=== PATIENT | male | born 1965 | race Two or more races ===

== ENCOUNTER 2025-06-27 12:18 | Inpatient (IN) | payer OTHER ==
[~2025-06-27] VITALS: Ht 193 cm; Wt 54.4 kg
[~2025-06-27 12:18] MED LIST: GLUCOTROL10 MG; LANTUS100 U/ML SQ; MEFOXIN IV; METFORMIN HCL500 MG; ULTRACET PO
[2025-06-27 12:30] VITALS: BP 90/60; O2SAT 100
[2025-06-27] MEDS ORDERED: INSULIN REGULAR, HUMAN 1,000 UNIT/10 ML UNITS IV ONE (12:45)
[2025-06-27] MEDS ORDERED: VANCOMYCIN HCL 1,000 MG VIAL IV ONE (12:45)
[2025-06-27] MEDS ORDERED: 0.9 % SODIUM CHLORIDE 1,000 ML IV SCH (12:45)
[2025-06-27] MEDS ORDERED: FAMOtidine 10 MG/ML (4ML VIAL) IV PUSH ONE (12:45)
[2025-06-27] MEDS ORDERED: ONDANSETRON HCL 4 MG in 0.9 % SODIUM CHLORIDE 50 ML IV ONE (12:45)
[2025-06-27] MEDS ORDERED: CEFTRIAXONE SODIUM 2,000 MG in 0.9 % SODIUM CHLORIDE 100 ML IV ONE (12:45)
[2025-06-27] MEDS ORDERED: 0.9 % SODIUM CHLORIDE 1,000 ML IV ONE ×2 (12:45)
[2025-06-27] MEDS ORDERED: SODIUM BICARBONATE 1 MEQ/ML DISP.SYRIN 50ML IV ONE ×4 (12:51→16:00)
[2025-06-27] MEDS ORDERED: PROPOFOL 10,000 MCG/ML VIAL ONE (12:54)
[2025-06-27 13:00] VITALS: BP 90/60; O2SAT 100
--- NOTE | 2025-06-27 13:32 | NUR ---
SE RECIBE PTE ALERTA Y DESORIENTADO X3 EN COMPANIA DE KEVIN SOBRINA QUIEN REFIERE PRESENTA AZUCAR EN NOE ELEVADA Y DEBILIDAD. SE OBSERVA CON RESPIRACIONES ABDOMINALES, SE MARICARMEN S/V, SE PRESENTA A Y SE UBICA EN ICU 2. SE CANALIZA PTE X3, VEOPUNCIONES PATENTES MIRZA DE EDE[place] Y ERITEMA EN H/L. SE MARICARMEN MUESTRAS DE LAB JACINDA ORDEN MEDICA Y BAJO MEDIDAS ASEPTICAS. SE CONECTA A MONITOR CARDAICO Y OXIMETRIA DE PULSO CONTINUA. SE COLOCA C/N @4 LT/MIN.
[2025-06-27] MEDS ORDERED: LORazepam 2 MG/ML VIAL IV STA (13:45)
[2025-06-27 13:48] LABS: ERYTHROCYTE SEDIMENTATION RATE 39 mm/hr (0-20)
[2025-06-27 13:49] LABS: BASO % 0.4 % (0.1-1.2); EOS # 0.00 (0.04-0.54); EOS % 0.0 % (0.7-7.0); LYMPH # 0.64 (1.18-3.74); LYMPH % 3.9 % (19.3-53.1); MEAN PLATELET VOLUME 12.90 fl (9.4-12.4); MONO # 1.60 (0.24-0.82); MONO % 9.9 % (4.7-12.5); NEUT # 13.72 (1.56-6.13); NEUT % 84.7 % (34.0-71.1); RED CELL DISTRIBUTION WIDTH 13.4 % (11.6-14.4)
[2025-06-27 14:00] LABS: COVID-19 AG NEGATIVE (NEGATIVE)
[2025-06-27 14:04] LABS: INR 1.04
[2025-06-27 14:21] LABS: URINE APPEARANCE Clear; URINE BILIRRUBIN Negative (NEGATIVE); URINE BLOOD Moderate; URINE COLOR Yellow; URINE LEUKOCYTE Negative; URINE NITRATE Negative; URINE UROBILINOGEN 0.2 E.U./dl
[2025-06-27 14:23] LABS: ALT/SGPT 22 U/L (12-78); AST/SGOT 16 U/L (15-37); BILIRUBIN TOTAL 0.55 mg/dL (0.3-1.2); BUN CREA RATIO 19 (7.0-25.0); CREATININE SERUM 2.39 mg/dL (0.70-1.30); GFR 27.79; GLOBULINA 4.3 G/DL (2.4-3.5)
[2025-06-27 14:25] LABS: URINE BACTERIA 27.5 uL (0.0-1933); URINE CAST 2.78 uL (0.0-1.40); URINE EPITHELIAL CELLS 5.3 uL (0.0-38.8); URINE RBC 14.9 uL (0.0-20.8); URINE WBC 4.4 uL (0.0-23.2)
[2025-06-27 14:35] LABS: URINE GLUCOSE >=1000 MG/DL (NEGATIVE); URINE KETONE 80 (NEGATIVE); URINE PROTEIN 100 (NEGATIVE)
[2025-06-27 14:47] LABS: OSMOLALITY SERUM 318 MOSM/KG (275-295)
[2025-06-27 14:48] LABS: GLUCOSE FASTING 782 mg/dL (65-100)
[2025-06-27] MEDS ORDERED: INSULIN REGULAR, HUMAN 100 UNITS in 0.9 % SODIUM CHLORIDE 100 ML IV SCH (15:00)
[2025-06-27] MEDS ORDERED: VANCOMYCIN HCL 1,000 MG VIAL ONE (15:09)
[2025-06-27] MEDS ORDERED: CEFTRIAXONE SODIUM 2,000 MG VIAL ONE (15:35)
[2025-06-27] MEDS ORDERED: SODIUM BICARBONATE 100 MEQ in SODIUM CHLORIDE 0.45 % 1,000 ML IV SCH (16:00)
[2025-06-27] MEDS ORDERED: ACETAMINOPHEN 650 MG SUPP.RECT RECTAL PRN (17:00)
[2025-06-27] MEDS ORDERED: ONDANSETRON HCL 4 MG in 0.9 % SODIUM CHLORIDE 50 ML IV PRN (17:00)
[2025-06-27] MEDS ORDERED: PROPOFOL 100 ML IV SCH (17:30)
[2025-06-27] MEDS ORDERED: MIDAZOLAM HCL 50 MG in 0.9 % SODIUM CHLORIDE 50 ML IV SCH (17:30)
[2025-06-27] MEDS ORDERED: ONDANSETRON HCL 2 MG/ML VIAL ONE (17:50)
[2025-06-27] MEDS ORDERED: FAMOTIDINE/PF 20 MG/2 ML VIAL ONE (17:50)
[2025-06-27 21:00] VITALS: BP 135/94; O2SAT 100
[2025-06-27] MEDS ORDERED: MEROPENEM 500 MG/VIAL VIAL IV SCH (21:00)
[2025-06-27] MEDS ORDERED: SODIUM CL 0.9% 100 ML IV.SOLN IV ONE (21:04)
[2025-06-27 21:35] LABS: BUN CREA RATIO 26.0 (7.0-25.0); CREATININE SERUM 1.76 mg/dL (0.70-1.30); GFR 39.56
[2025-06-27 21:36] LABS: COCAINE NEGATIVE (NEGATIVE); METHADONE NEGATIVE (NEGATIVE); OPIATES NEGATIVE (NEGATIVE); THC ( Cannabinoids) NEGATIVE (NEGATIVE)
[2025-06-27 21:49] LABS: OSMOLALITY SERUM 325.0 MOSM/KG (275-295)
[2025-06-27 21:50] LABS: GLUCOSE FASTING 517.0 mg/dL (65-100)
[2025-06-27 23:45] VITALS: BP 132/88; O2SAT 100
[2025-06-28] VITALS (14 sets, daily range): BP systolic 96–144; BP diastolic 68–96; O2SAT 100
[2025-06-28] MEDS ORDERED: CHLORHEXIDINE GLUCONATE 15ML BRUSH KIT MM SCH (01:00)
[2025-06-28] MEDS ORDERED: DEXTROSE 5 % IN WATER 500 ML IV SCH (04:30)
[2025-06-28 08:57] LABS: ALT/SGPT 16.0 U/L (12-78); AST/SGOT 24.0 U/L (15-37); BILIRUBIN TOTAL 0.36 mg/dL (0.3-1.2); BUN CREA RATIO 30.0 (7.0-25.0); CREATININE SERUM 1.44 mg/dL (0.70-1.30); GFR 49.87; GLOBULINA 3.0 G/DL (2.4-3.5); GLUCOSE FASTING 104.0 mg/dL (65-100)
[2025-06-28] MEDS ORDERED: PANTOPRAZOLE SODIUM 40 MG/VIAL VIAL IV SCH (09:00)
[2025-06-28] MEDS ORDERED: POLYVINYL ALCOHOL 15 ML DROPS OP SCH (09:00)
[2025-06-28] MEDS ORDERED: LINEZOLID IN DEXTROSE 5% 300 ML IV SCH (09:00)
[2025-06-28 09:08] LABS: OSMOLALITY SERUM 309.0 MOSM/KG (275-295); TSH 5.24 uIU/mL (0.358-3.74)
[2025-06-28] MEDS ORDERED: SODIUM CHLORIDE 0.45 % 1,000 ML IV SCH (11:30)
[2025-06-28] MEDS ORDERED: POTASSIUM CHLORIDE 20MEQ/100ML H2O PB IV NR (12:00)
[2025-06-28] MEDS ORDERED: INSULIN LISPRO 1,000 UNIT/10 ML UNITS SUBCUTANEO PRN (12:15)
[2025-06-28] MEDS ORDERED: DEXTROSE 50 % IN WATER 0.5 G/ML DISP.SYRIN IV PRN (12:15)
[2025-06-29] VITALS (8 sets, daily range): BP systolic 99–151; BP diastolic 73–93; O2SAT 100
[2025-06-29] MEDS ORDERED: DEXTROSE 5 % IN WATER 1,000 ML IV SCH (04:30)
[2025-06-29 06:39] LABS: URINE APPEARANCE Cloudy; URINE BILIRRUBIN Negative (NEGATIVE); URINE BLOOD Moderate; URINE COLOR Yellow; URINE KETONE 15 (NEGATIVE); URINE LEUKOCYTE Negative; URINE NITRATE Negative; URINE PROTEIN Trace (NEGATIVE); URINE UROBILINOGEN 0.2 E.U./dl
[2025-06-29 06:43] LABS: URINE BACTERIA 59.9 uL (0.0-1933); URINE EPITHELIAL CELLS 9.6 uL (0.0-38.8); URINE RBC 188.8 uL (0.0-20.8); URINE WBC 6.4 uL (0.0-23.2)
[2025-06-29] MEDS ORDERED: INSULIN NPH HUMAN ISOPHANE 1,000 UNITS/10 ML UNITS SUBCUTANEO STA (06:57)
[2025-06-29 07:00] LABS: BASO % 0.2 % (0.1-1.2); EOS # 0.02 (0.04-0.54); EOS % 0.2 % (0.7-7.0); LYMPH # 0.49 (1.18-3.74); LYMPH % 5.9 % (19.3-53.1); MEAN PLATELET VOLUME 12.40 fl (9.4-12.4); MONO # 0.60 (0.24-0.82); MONO % 7.2 % (4.7-12.5); NEUT # 7.10 (1.56-6.13); NEUT % 85.8 % (34.0-71.1); RED CELL DISTRIBUTION WIDTH 12.3 % (11.6-14.4)
[2025-06-29 07:27] LABS: URINE CAST 0.00 uL (0.0-1.40); URINE GLUCOSE >=1000 MG/DL (NEGATIVE)
[2025-06-29 07:29] LABS: URINE CRYSTALS MODERATE /HPF
[2025-06-29 07:43] LABS: ALT/SGPT 18.0 U/L (12-78); AST/SGOT 29.0 U/L (15-37); BILIRUBIN TOTAL 0.37 mg/dL (0.3-1.2); BUN CREA RATIO 22.0 (7.0-25.0); CREATININE SERUM 1.22 mg/dL (0.70-1.30); GFR 60.39; GLOBULINA 3.0 G/DL (2.4-3.5); LDH 214.0 U/L (87-241)
[2025-06-29 07:45] LABS: GLUCOSE FASTING 318.0 mg/dL (65-100); OSMOLALITY SERUM 302.0 MOSM/KG (275-295)
[2025-06-29] MEDS ORDERED: CHLORHEXIDINE GLUCONATE 120 ML BOTTLE TOP ONE (10:52)
[2025-06-29] MEDS ORDERED: POTASSIUM CHLORIDE IN WATER 100 ML IV NR (11:00)
[2025-06-29] MEDS ORDERED: INSULIN NPH HUMAN ISOPHANE 1,000 UNITS/10 ML UNITS SUBCUTANEO SCH (13:00)
[2025-06-29] MEDS ORDERED: SODIUM CHLORIDE 0.45 % 1,000 ML IV SCH (13:45)
[2025-06-29] MEDS ORDERED: POTASSIUM CHLORIDE IN WATER 40 MEQ/100 ML PIGGYBAG IV ONE (16:30)
[2025-06-30] VITALS (9 sets, daily range): BP systolic 101–161; BP diastolic 65–98; O2SAT 99–100
[2025-06-30] MEDS ORDERED: METHYLPREDNISOLONE SOD SUCC 40 MG VIAL IV STA (09:44)
[2025-06-30] MEDS ORDERED: ALBUTEROL SULFATE 3 ML/2.5 MG AMPUL.NEB IH NR (11:00)
[2025-06-30] MEDS ORDERED: RACEPINEPHRINE HCL 0.5 ML AMPUL IH NR (11:00)
[2025-06-30 14:14] LABS: BASO % 0.3 % (0.1-1.2); EOS # 0.00 (0.04-0.54); EOS % 0.0 % (0.7-7.0); LYMPH # 0.99 (1.18-3.74); LYMPH % 6.6 % (19.3-53.1); MEAN PLATELET VOLUME 11.80 fl (9.4-12.4); MONO # 0.82 (0.24-0.82); MONO % 5.4 % (4.7-12.5); NEUT # 13.13 (1.56-6.13); NEUT % 86.9 % (34.0-71.1); RED CELL DISTRIBUTION WIDTH 13.2 % (11.6-14.4)
[2025-06-30 14:52] LABS: BAND MAN 22.0 %; LYMPHOCYTE MAN 9.0 %; MONOCYTE MAN 4.0 %; NEUTROPHILS MAN 63.0 %
[2025-06-30 15:04] LABS: ALT/SGPT 18.0 U/L (12-78); AST/SGOT 31.0 U/L (15-37); BILIRUBIN TOTAL 0.59 mg/dL (0.3-1.2); BUN CREA RATIO 26.0 (7.0-25.0); CREATININE SERUM 0.7 mg/dL (0.70-1.30); GFR 114.65; GLOBULINA 3.0 G/DL (2.4-3.5); GLUCOSE FASTING 255.0 mg/dL (65-100); OSMOLALITY SERUM 301.0 MOSM/KG (275-295)
[2025-06-30] MEDS ORDERED: POTASSIUM CHLORIDE IN WATER 100 ML IV ONE (20:30)
[2025-06-30] MEDS ORDERED: ENALAPRILAT DIHYDRATE 1.25 MG/ML VIAL IV ONE (21:47)
[2025-06-30] MEDS ORDERED: ENALAPRILAT DIHYDRATE 1.25 MG/ML VIAL IV PRN (22:15)
[2025-07-01 04:00] VITALS: BP 137/87; O2SAT 100
[2025-07-01 07:01] VITALS: BP 118/83; O2SAT 100
[2025-07-01 11:56] VITALS: BP 136/84; O2SAT 100
[2025-07-01] MEDS ORDERED: MEROPENEM 500 MG/VIAL VIAL IV SCH (12:00)
[2025-07-01 15:35] VITALS: BP 128/83; O2SAT 100
[2025-07-01 20:00] VITALS: BP 139/83; O2SAT 100
[2025-07-01] MEDS ORDERED: INSULIN NPH HUMAN ISOPHANE 1,000 UNITS/10 ML UNITS SUBCUTANEO STA (21:08)
[2025-07-01] MEDS ORDERED: INSULIN REGULAR, HUMAN 1,000 UNIT/10 ML UNITS IV STA (21:09)
[2025-07-01 23:23] VITALS: BP 130/79; O2SAT 100
[2025-07-02 04:02] VITALS: BP 109/57; O2SAT 98
[2025-07-02 07:01] VITALS: BP 148/91; O2SAT 100
[2025-07-02] MEDS ORDERED: INSULIN LISPRO 1,000 UNIT/10 ML UNITS SUBCUTANEO SCH ×2 (08:00)
[2025-07-02] MEDS ORDERED: INSULIN NPH HUMAN ISOPHANE 1,000 UNITS/10 ML UNITS SUBCUTANEO SCH ×2 (09:00)
[2025-07-02 12:09] VITALS: BP 154/103; O2SAT 100
[2025-07-02 15:46] VITALS: BP 119/70; O2SAT 100
[2025-07-02] MEDS ORDERED: LACTOBACILLUS ACIDOPHILUS 1 CAP CAP PO SCH (17:00)
[2025-07-03 01:51] VITALS: BP 142/90; O2SAT 98
[2025-07-03 06:32] LABS: BASO % 0.7 % (0.1-1.2); EOS # 0.09 (0.04-0.54); EOS % 1.6 % (0.7-7.0); LYMPH # 0.98 (1.18-3.74); LYMPH % 17.2 % (19.3-53.1); MEAN PLATELET VOLUME 11.20 fl (9.4-12.4); MONO # 0.90 (0.24-0.82); NEUT # 3.63 (1.56-6.13); NEUT % 63.6 % (34.0-71.1); RED CELL DISTRIBUTION WIDTH 12.9 % (11.6-14.4)
[2025-07-03 06:59] LABS: MONO % 15.8 % (4.7-12.5)
[2025-07-03 07:01] LABS: ALT/SGPT 23.0 U/L (12-78); AST/SGOT 28.0 U/L (15-37); BILIRUBIN TOTAL 0.51 mg/dL (0.3-1.2); BUN CREA RATIO 36.0 (7.0-25.0); CREATININE SERUM 0.53 mg/dL (0.70-1.30); GFR 158.05; GLOBULINA 3.0 G/DL (2.4-3.5); OSMOLALITY SERUM 293.0 MOSM/KG (275-295)
[2025-07-03 07:04] LABS: GLUCOSE FASTING 274.0 mg/dL (65-100)
[2025-07-03 09:28] VITALS: BP 125/76; O2SAT 99
[2025-07-03] MEDS ORDERED: LINEZOLID IN DEXTROSE 5% 300 ML IV NR (10:00)
[2025-07-03] MEDS ORDERED: MUPIROCIN 22 GM OINT..GM TUBE NASAL SCH (17:00)
[2025-07-03 17:56] VITALS: BP 137/84
[2025-07-03] MEDS ORDERED: LINEZOLID IN DEXTROSE 5% 300 ML IV SCH (21:00)
[2025-07-04 03:27] VITALS: BP 143/83; O2SAT 98
[2025-07-04 08:39] VITALS: BP 126/72; O2SAT 98
[2025-07-04] MEDS ORDERED: CHLORHEXIDINE GLUCONATE 120 ML BOTTLE TOP SCH (09:00)
[2025-07-04] MEDS ORDERED: INSULIN LISPRO 1,000 UNIT/10 ML UNITS SUBCUTANEO SCH (12:00)
[2025-07-04 12:01] LABS: ALT/SGPT 30.0 U/L (12-78); AST/SGOT 45.0 U/L (15-37); BILIRUBIN TOTAL 0.4 mg/dL (0.3-1.2); BUN CREA RATIO 22.0 (7.0-25.0); CREATININE SERUM 0.85 mg/dL (0.70-1.30); GFR 91.63; GLOBULINA 3.1 G/DL (2.4-3.5)
[2025-07-04 12:16] LABS: OSMOLALITY SERUM 296.0 MOSM/KG (275-295)
[2025-07-04 12:17] LABS: GLUCOSE FASTING 382.0 mg/dL (65-100)
[2025-07-04 18:38] VITALS: BP 129/77
[2025-07-04] MEDS ORDERED: INSULIN GLARGINE,HUM.REC.ANLOG 1,000 UNITS/10 ML UNITS SUBCUTANEO SCH (21:00)
[2025-07-05 04:27] VITALS: BP 159/90; O2SAT 97
[2025-07-05 08:13] LABS: BASO % 1.1 % (0.1-1.2); EOS # 0.12 (0.04-0.54); EOS % 2.6 % (0.7-7.0); LYMPH # 1.12 (1.18-3.74); LYMPH % 23.8 % (19.3-53.1); MEAN PLATELET VOLUME 10.70 fl (9.4-12.4); MONO # 1.45 (0.24-0.82); NEUT # 1.91 (1.56-6.13); NEUT % 40.5 % (34.0-71.1); RED CELL DISTRIBUTION WIDTH 12.2 % (11.6-14.4)
[2025-07-05 08:42] VITALS: BP 142/74; O2SAT 98
[2025-07-05 08:48] VITALS: BP 124/74; O2SAT 98
[2025-07-05 09:43] LABS: BAND MAN 3.0 %; BASOPHIL MAN 0.0 %; EOSINOPHIL MAN 1.0 %; LYMPHOCYTE MAN 7.0 %; METAMYELOCYTE 2.0 %; MONO % 30.9 % (4.7-12.5); MONOCYTE MAN 33.0 %; NEUTROPHILS MAN 47.0 %
[2025-07-05 17:56] VITALS: BP 140/88
[2025-07-06 02:47] VITALS: BP 131/73; O2SAT 98
[2025-07-06 09:07] VITALS: BP 122/71; O2SAT 97
[2025-07-06] MEDS ORDERED: INSULIN GLARGINE,HUM.REC.ANLOG 1,000 UNITS/10 ML UNITS SUBCUTANEO SCH (21:00)
== END 2025-07-06 14:21 | disposition home or self-care (01) | DRG 637 ==
LOC: ER 12:18 → ICU 16:51 → ICU-2 16:51 → ICU 21:10 → MEDJ 07-02 20:16
PROVIDERS: General Practice; Internal Medicine; Internal Medicine Critical Care Medicine; Internal Medicine Nephrology; ADMIT Internal Medicine; ATTEND Internal Medicine
PROC: 0BH18EZ Insertion of Endotracheal Airway into Trachea, Via Natural or Artificial Opening Endoscopic (ICD-10-PCS; principal; 2025-06-27)
PROC: 5A1945Z Respiratory Ventilation, 24-96 Consecutive Hours (ICD-10-PCS; 2025-06-27)
PROC: B54CZZZ Ultrasonography of Left Lower Extremity Veins (ICD-10-PCS; 2025-07-01)
DX: E11.10 Type 2 diabetes mellitus with ketoacidosis without coma (principal); A41.9 Sepsis, unspecified organism; J96.00 Acute respiratory failure, unspecified whether with hypoxia or hypercapnia; K85.90 Acute pancreatitis without necrosis or infection, unspecified; E11.52 Type 2 diabetes mellitus with diabetic peripheral angiopathy with gangrene; N17.9 Acute kidney failure, unspecified; E87.3 Alkalosis; E87.0 Hyperosmolality and hypernatremia; Z79.4 Long term (current) use of insulin; L03.032 Cellulitis of left toe; D72.829 Elevated white blood cell count, unspecified; L97.529 Non-pressure chronic ulcer of other part of left foot with unspecified severity; D64.9 Anemia, unspecified

== ENCOUNTER 2025-07-27 11:28 | Inpatient (IN) | payer OTHER ==
[~2025-07-27] VITALS: Ht 175.3 cm; Wt 54.4 kg
[2025-07-27] MEDS ORDERED: RINGERS SOLUTION,LACTATED 1,000 ML IV ONE (12:30)
[2025-07-27 13:12] LABS: BASO % 0.4 % (0.1-1.2); EOS # 0.01 (0.04-0.54); EOS % 0.1 % (0.7-7.0); LYMPH # 0.65 (1.18-3.74); LYMPH % 4.8 % (19.3-53.1); MEAN PLATELET VOLUME 11.60 fl (9.4-12.4); MONO # 1.00 (0.24-0.82); MONO % 7.4 % (4.7-12.5); NEUT # 11.64 (1.56-6.13); NEUT % 86.3 % (34.0-71.1); RED CELL DISTRIBUTION WIDTH 14.3 % (11.6-14.4)
[2025-07-27] MEDS ORDERED: INSULIN REGULAR, HUMAN 1,000 UNIT/10 ML UNITS IV ONE (13:30)
[2025-07-27 13:51] LABS: ALT/SGPT 18.0 U/L (12-78); AST/SGOT 10.0 U/L (15-37); BILIRUBIN TOTAL 0.63 mg/dL (0.3-1.2); BUN CREA RATIO 18.0 (7.0-25.0); CREATININE SERUM 2.26 mg/dL (0.70-1.30); GFR 29.65; GLOBULINA 4.4 G/DL (2.4-3.5); PHOSPHOKINASE CREATININE 36.0 U/L (39-308)
[2025-07-27 14:38] LABS: GLUCOSE FASTING 816.0 mg/dL (65-100); OSMOLALITY SERUM 322.0 MOSM/KG (275-295)
[2025-07-27] MEDS ORDERED: 0.9 % SODIUM CHLORIDE 1,000 ML IV SCH (16:00)
[2025-07-27] MEDS ORDERED: 0.9 % SODIUM CHLORIDE 1,000 ML IV ONE (16:15)
[2025-07-27] MEDS ORDERED: ENOXAPARIN SODIUM 40 MG/0.4 ML SYRINGE SUBCUTANEO SCH (16:17)
[2025-07-27 16:29] LABS: URINE APPEARANCE Clear; URINE BILIRRUBIN Negative (NEGATIVE); URINE BLOOD Negative; URINE COLOR Yellow; URINE LEUKOCYTE Negative; URINE NITRATE Negative; URINE PROTEIN 30 (NEGATIVE); URINE UROBILINOGEN 0.2 E.U./dl
[2025-07-27] MEDS ORDERED: INSULIN REGULAR, HUMAN 100 UNITS in 0.9 % SODIUM CHLORIDE 100 ML IV SCH (16:30)
[2025-07-27] MEDS ORDERED: SODIUM BICARBONATE 1 MEQ/ML DISP.SYRIN 50ML IV ONE (16:30)
[2025-07-27 16:33] LABS: URINE BACTERIA 4.7 uL (0.0-1933); URINE CAST 3.37 uL (0.0-1.40); URINE EPITHELIAL CELLS 1.8 uL (0.0-38.8); URINE RBC 2.6 uL (0.0-20.8); URINE WBC 1.9 uL (0.0-23.2)
[2025-07-27 16:38] LABS: URINE GLUCOSE >=1000 MG/DL (NEGATIVE); URINE KETONE >=160 (NEGATIVE)
[2025-07-27] MEDS ORDERED: CEFTRIAXONE SODIUM 2,000 MG in 0.9 % SODIUM CHLORIDE 100 ML IV SCH (16:44)
[2025-07-27 16:50] LABS: BUN CREA RATIO 17.0 (7.0-25.0); CREATININE SERUM 2.44 mg/dL (0.70-1.30); GFR 27.14
[2025-07-27 17:09] LABS: OSMOLALITY SERUM 323.0 MOSM/KG (275-295)
[2025-07-27 17:11] LABS: GLUCOSE FASTING 804.0 mg/dL (65-100)
[2025-07-27 17:38] LABS: BUN CREA RATIO 20.0 (7.0-25.0); CREATININE SERUM 2.29 mg/dL (0.70-1.30); GFR 29.2
[2025-07-27 17:55] LABS: OSMOLALITY SERUM 327.0 MOSM/KG (275-295)
[2025-07-27 17:56] LABS: GLUCOSE FASTING 787.0 mg/dL (65-100)
[2025-07-27 18:22] VITALS: BP 103/66; O2SAT 100
[2025-07-27 18:26] VITALS: BP 86/48
[2025-07-28] VITALS (13 sets, daily range): BP systolic 114–168; BP diastolic 64–93; O2SAT 95–100
[2025-07-28 07:02] LABS: INR 0.99
[2025-07-28 07:23] LABS: ALT/SGPT 15.0 U/L (12-78); AST/SGOT 14.0 U/L (15-37); BILIRUBIN TOTAL 0.34 mg/dL (0.3-1.2); BUN CREA RATIO 26.0 (7.0-25.0); CREATININE SERUM 1.57 mg/dL (0.70-1.30); GFR 45.14; GLOBULINA 3.6 G/DL (2.4-3.5); GLUCOSE FASTING 144.0 mg/dL (65-100); OSMOLALITY SERUM 307.0 MOSM/KG (275-295)
[2025-07-28] MEDS ORDERED: DEXTROSE 5 % IN WATER 1,000 ML IV SCH (16:15)
[2025-07-28] MEDS ORDERED: INSULIN LISPRO 1,000 UNIT/10 ML UNITS SUBCUTANEO PRN (19:45)
[2025-07-28] MEDS ORDERED: SODIUM CHLORIDE 0.45 % 1,000 ML IV SCH (19:45)
[2025-07-28] MEDS ORDERED: DEXTROSE 50 % IN WATER 0.5 G/ML DISP.SYRIN IV PRN (19:45)
[2025-07-28] MEDS ORDERED: INSULIN NPH HUMAN ISOPHANE 1,000 UNITS/10 ML UNITS SUBCUTANEO STA (19:47)
[2025-07-29] VITALS (17 sets, daily range): BP systolic 107–156; BP diastolic 65–100; O2SAT 100
[2025-07-29 06:58] LABS: BUN CREA RATIO 25.0 (7.0-25.0); CREATININE SERUM 0.87 mg/dL (0.70-1.30); GFR 89.21; GLUCOSE FASTING 248.0 mg/dL (65-100); OSMOLALITY SERUM 287.0 MOSM/KG (275-295)
[2025-07-29] MEDS ORDERED: INSULIN LISPRO 1,000 UNIT/10 ML UNITS SUBCUTANEO SCH (08:00)
[2025-07-29] MEDS ORDERED: INSULIN GLARGINE,HUM.REC.ANLOG 1,000 UNITS/10 ML UNITS SUBCUTANEO SCH (09:00)
[2025-07-29] MEDS ORDERED: INSULIN LISPRO 1,000 UNIT/10 ML UNITS SUBCUTANEO ONE ×3 (09:35→16:33)
[2025-07-29] MEDS ORDERED: INSULIN GLARGINE,HUM.REC.ANLOG 1,000 UNITS/10 ML UNITS SUBCUTANEO ONE (09:36)
[2025-07-29] MEDS ORDERED: ENALAPRILAT DIHYDRATE 1.25 MG/ML VIAL IV SCH (12:52)
[2025-07-29] MEDS ORDERED: ENALAPRILAT DIHYDRATE 1.25 MG/ML VIAL IV PRN (13:00)
[2025-07-30 03:11] VITALS: BP 145/71; O2SAT 98
== END 2025-07-30 07:34 | disposition left against medical advice (07) | DRG 638 ==
LOC: ER 11:28 → ICU-2 16:33 → SEC-K 07-29 17:41 → MEDJ 07-29 18:00
PROVIDERS: General Practice; Internal Medicine Endocrinology, Diabetes & Metabolism; ADMIT Internal Medicine; ATTEND Internal Medicine
PROC: BW28ZZZ Computerized Tomography (CT Scan) of Head (ICD-10-PCS; principal; 2025-07-27)
DX: E11.10 Type 2 diabetes mellitus with ketoacidosis without coma (principal); N17.9 Acute kidney failure, unspecified; Z79.4 Long term (current) use of insulin; D72.829 Elevated white blood cell count, unspecified; R69 Illness, unspecified

== ENCOUNTER 2025-08-14 19:32 | Inpatient (IN) | payer OTHER ==
[~2025-08-14] VITALS: Ht 152.4 cm; Wt 53.1 kg
--- NOTE | 2025-08-14 19:47 | NUR ---
SE RECIBE PTE DESORIENTADO EN AMBULANCIA EN COMPANAI DE FAMILIAR. FAMILIAR REFIERE HYPERGLICEMIA.
[2025-08-14] MEDS ORDERED: 0.9 % SODIUM CHLORIDE 1,000 ML IV ONE ×3 (20:00→21:45)
[2025-08-14] MEDS ORDERED: FAMOTIDINE/PF 20 MG in 0.9 % SODIUM CHLORIDE 8 ML IV PUSH ONE (20:00)
[2025-08-14] MEDS ORDERED: ONDANSETRON HCL 4 MG in 0.9 % SODIUM CHLORIDE 50 ML IV ONE (20:00)
[2025-08-14] MEDS ORDERED: 0.9 % SODIUM CHLORIDE 1,000 ML IV SCH (20:00)
[2025-08-14] MEDS ORDERED: INSULIN REGULAR, HUMAN 1,000 UNIT/10 ML UNITS IV ONE (20:00)
[2025-08-14 20:32] LABS: BASO % 0.2 % (0.1-1.2); EOS # 0.00 (0.04-0.54); EOS % 0.0 % (0.7-7.0); LYMPH # 0.48 (1.18-3.74); LYMPH % 5.7 % (19.3-53.1); MEAN PLATELET VOLUME 11.20 fl (9.4-12.4); MONO # 0.08 (0.24-0.82); MONO % 0.9 % (4.7-12.5); NEUT # 7.81 (1.56-6.13); NEUT % 92.3 % (34.0-71.1); RED CELL DISTRIBUTION WIDTH 14.2 % (11.6-14.4)
--- NOTE | 2025-08-14 20:41 | NUR ---
PTE EVALUADO POR EL DR. ROBB. SE ORIENTA SOBRE TRATAMIENTO, VERBALIZA ENTENDER. SE COLECTAN MUESTRAS DE LAB Y SE ADMINISTRA MEDICAMENTO JACINDA ORDEN MEDICA BAJO MEDIDAS ASEPTICAS. SE CONECTA A MONITOR CARDIACO. SE NOTIFICA CT.
[2025-08-14 21:03] LABS: INR 0.97
[2025-08-14 21:13] LABS: ALT/SGPT 23.0 U/L (12-78); AST/SGOT 12.0 U/L (15-37); BILIRUBIN TOTAL 0.56 mg/dL (0.3-1.2); BUN CREA RATIO 23.0 (7.0-25.0); CREATININE SERUM 1.4 mg/dL (0.70-1.30); GFR 51.52; GLOBULINA 4.0 G/DL (2.4-3.5)
[2025-08-14 21:22] LABS: OSMOLALITY SERUM 300.0 MOSM/KG (275-295)
[2025-08-14 21:24] LABS: GLUCOSE FASTING 585.0 mg/dL (65-100)
[2025-08-14] MEDS ORDERED: SODIUM BICARBONATE 1 MEQ/ML DISP.SYRIN 50ML IV ONE ×2 (21:27→21:30)
[2025-08-14] MEDS ORDERED: CEFTRIAXONE SODIUM 2,000 MG in 0.9 % SODIUM CHLORIDE 100 ML IV SCH (21:37)
[2025-08-14] MEDS ORDERED: INSULIN REGULAR, HUMAN 100 UNITS in 0.9 % SODIUM CHLORIDE 100 ML IV SCH (21:45)
[2025-08-14] MEDS ORDERED: SODIUM BICARBONATE 100 MEQ in SODIUM CHLORIDE 0.45 % 1,000 ML IV ONE (21:45)
[2025-08-14] MEDS ORDERED: ONDANSETRON HCL 4 MG in 0.9 % SODIUM CHLORIDE 50 ML IV PRN (21:45)
[2025-08-14] MEDS ORDERED: ACETAMINOPHEN 500 MG GEL..CAP PO PRN (21:45)
[2025-08-14 23:00] VITALS: BP 143/91; O2SAT 100
[2025-08-14 23:46] LABS: URINE APPEARANCE Clear; URINE BILIRRUBIN Negative (NEGATIVE); URINE BLOOD Negative; URINE COLOR Yellow; URINE LEUKOCYTE Negative; URINE NITRATE Negative; URINE PROTEIN 30 (NEGATIVE); URINE UROBILINOGEN 0.2 E.U./dl
[2025-08-14 23:50] LABS: URINE BACTERIA 32.0 uL (0.0-1933); URINE CAST 1.84 uL (0.0-1.40); URINE EPITHELIAL CELLS 6.2 uL (0.0-38.8); URINE RBC 2.1 uL (0.0-20.8); URINE WBC 9.1 uL (0.0-23.2)
[2025-08-15 00:16] LABS: URINE GLUCOSE >=1000 MG/DL (NEGATIVE); URINE KETONE >=160 (NEGATIVE)
[2025-08-15 07:30] VITALS: BP 108/63; O2SAT 100
[2025-08-15 07:56] LABS: BUN CREA RATIO 20.0 (7.0-25.0); CREATININE SERUM 1.11 mg/dL (0.70-1.30); GFR 67.35; GLUCOSE FASTING 171.0 mg/dL (65-100); OSMOLALITY SERUM 287.0 MOSM/KG (275-295); TSH 3.29 uIU/mL (0.358-3.74)
[2025-08-15] MEDS ORDERED: FAMOTIDINE/PF 20 MG in 0.9 % SODIUM CHLORIDE 8 ML IV PUSH SCH (09:00)
[2025-08-15] MEDS ORDERED: INSULIN LISPRO 1,000 UNIT/10 ML UNITS SUBCUTANEO PRN (10:15)
[2025-08-15] MEDS ORDERED: DEXTROSE 50 % IN WATER 0.5 G/ML DISP.SYRIN IV PRN (10:15)
[2025-08-15] MEDS ORDERED: INSULIN NPH HUMAN ISOPHANE 1,000 UNITS/10 ML UNITS SUBCUTANEO STA (10:15)
[2025-08-15 11:30] VITALS: BP 94/63; O2SAT 100
[2025-08-15 20:04] VITALS: BP 115/74
[2025-08-15] MEDS ORDERED: INSULIN NPH HUMAN ISOPHANE 1,000 UNITS/10 ML UNITS SUBCUTANEO SCH (21:00)
[2025-08-16 03:08] VITALS: BP 106/71; O2SAT 99
[2025-08-16 09:45] VITALS: BP 124/62; O2SAT 99
[2025-08-16 09:48] VITALS: BP 124/62; O2SAT 98
[2025-08-16] MEDS ORDERED: INSULIN LISPRO 1,000 UNIT/10 ML UNITS SUBCUTANEO SCH (17:00)
[2025-08-16 20:06] VITALS: BP 119/80
[2025-08-16] MEDS ORDERED: INSULIN GLARGINE,HUM.REC.ANLOG 1,000 UNITS/10 ML UNITS SUBCUTANEO SCH (21:00)
== END 2025-08-17 00:47 | disposition left against medical advice (07) | DRG 637 ==
LOC: ER → MEDI 22:13 → ICU-2 23:32 → MEDJ 08-15 13:46
PROVIDERS: General Practice; ADMIT Student in an Organized Health Care Education/Training Program; ATTEND Student in an Organized Health Care Education/Training Program
PROC: 4A033R1 Measurement of Arterial Saturation, Peripheral, Percutaneous Approach (ICD-10-PCS; principal; 2025-08-14)
PROC: BW21ZZZ Computerized Tomography (CT Scan) of Abdomen and Pelvis (ICD-10-PCS; 2025-08-14)
DX: E10.10 Type 1 diabetes mellitus with ketoacidosis without coma (principal); A41.9 Sepsis, unspecified organism; K85.90 Acute pancreatitis without necrosis or infection, unspecified; J96.90 Respiratory failure, unspecified, unspecified whether with hypoxia or hypercapnia; K86.3 Pseudocyst of pancreas; E87.0 Hyperosmolality and hypernatremia; N17.9 Acute kidney failure, unspecified; Z79.4 Long term (current) use of insulin; K40.90 Unilateral inguinal hernia, without obstruction or gangrene, not specified as recurrent; L97.529 Non-pressure chronic ulcer of other part of left foot with unspecified severity; Z53.29 Procedure and treatment not carried out because of patient's decision for other reasons; E87.8 Other disorders of electrolyte and fluid balance, not elsewhere classified